=== PATIENT | male | born 1995 | race Caucasian/White ===

== ENCOUNTER 2021-05-02 06:55 | Emergency (ER) | payer MEDICAID ==
[~2021-05-02] VITALS: Ht 180.3 cm; Wt 77.3 kg
[2021-05-02] MEDS ORDERED: normal saline 1000ML IV soln IVB ONE (07:00)
[2021-05-02 08:00] LABS: BASOPHILS % (AUTO) 0.3 % (0-1); EOSINOPHILS # (AUTO) 0.1 X10'3 (0-0.9); HEMATOCRIT 43.4 % (42.0-52.0); HEMOGLOBIN 14.8 g/dl (14.0-17.9); LYMPHOCYTES # (AUTO) 1.4 X10'3 (1.1-4.8); MEAN CORPUSCULAR HEMOGLOBIN 30.4 PG (27.0-31.0); MEAN CORPUSCULAR HGB CONC 34.2 g/dL (33.0-36.5); MEAN CORPUSCULAR VOLUME 89.1 FL (78-98); MONOCYTES # (AUTO) 0.5 X10'3 (0-0.9)
[2021-05-02 08:03] LABS: EOSINOPHILS % (AUTO) 1.3 % (0-6); LYMPHOCYTES % (AUTO) 13.9 % (21-51); MEAN PLATELET VOLUME 9.9 FL (7.4-10.4); MONOCYTES % (AUTO) 5.1 % (2-12); NEUTROPHILS % (AUTO) 79.4 % (42-75); PLATELET COUNT 156 X10'3 (140-440); RED BLOOD COUNT 4.87 X10'6 (4.70-6.10); RED CELL DISTRIBUTION WIDTH 13.1 % (11.5-14.5); WHITE BLOOD COUNT 10.1 X10'3 (4.5-11.0)
[2021-05-02] MEDS ORDERED: azithromycin 250mg tablet PO ONE (08:30)
[2021-05-02 09:07] LABS: ALANINE AMINOTRANSFERASE 26 U/L (12-78); ALBUMIN 3.8 G/DL (3.4-5.0); ALBUMIN/GLOBULIN RATIO 1.2 (1.1-1.5); ALKALINE PHOSPHATASE 104 IU/L (46-116); ANION GAP 13 (8-16); ASPARTATE AMINO TRANSFERASE 24 U/L (10-37); BILIRUBIN,TOTAL 0.3 MG/DL (0.1-1.0); BLOOD UREA NITROGEN 14 MG/DL (7-18); BUN/CREATININE RATIO 12.5 (5.4-32.0); CALCIUM 8.9 MG/DL (8.5-10.1); CHLORIDE 106 MMOL/L (99-107); CREATININE 1.12 MG/DL (0.60-1.10); GLUCOSE 175 MG/DL (70-104); MAGNESIUM 1.9 MG/DL (1.5-2.4); POTASSIUM 3.7 MMOL/L (3.5-5.1); SODIUM 145 MMOL/L (135-145); TOTAL PROTEIN 7.1 G/DL (6.4-8.2); eGFR 79 ML/MIN
[2021-05-02] MEDS ORDERED: AZIT-83 PO (09:51)
[2021-05-02 10:31] VITALS: BP 132/72
== END 2021-05-02 10:32 | disposition home or self-care (01) ==
LOC: ER 06:56
DX: T40.411A Poisoning by fentanyl or fentanyl analogs, accidental (unintentional), initial encounter (principal); R51.9 Headache, unspecified; J69.0 Pneumonitis due to inhalation of food and vomit; F17.210 Nicotine dependence, cigarettes, uncomplicated; Z79.2 Long term (current) use of antibiotics; Y92.89 Other specified places as the place of occurrence of the external cause
CPT/HCPCS: 71045; 80053; 83735; 84484; 85025; 93005; 99285; J7030

== ENCOUNTER 2021-05-19 08:11 | Inpatient (IN) | payer MEDICAID ==
[~2021-05-19] VITALS: Ht 172.7 cm; Wt 88.0 kg
[~2021-05-19 08:11] MED LIST: AZIT-83 PO
[2021-05-19] MEDS ORDERED: normal saline 1000ML IV soln IVB ONE ×2 (08:25→09:25)
[2021-05-19 08:40] LABS: BASOPHILS # (AUTO) 0.1 X10'3 (0-0.2); BASOPHILS % (AUTO) 0.2 % (0-1); EOSINOPHILS # (AUTO) 0.4 X10'3 (0-0.9); HEMATOCRIT 53.4 % (42.0-52.0); HEMOGLOBIN 17.3 g/dl (14.0-17.9); LYMPHOCYTES # (AUTO) 4.2 X10'3 (1.1-4.8); LYMPHOCYTES % (AUTO) 10.8 % (21-51); MEAN CORPUSCULAR HEMOGLOBIN 29.4 PG (27.0-31.0); MEAN CORPUSCULAR HGB CONC 32.5 g/dL (33.0-36.5); MEAN CORPUSCULAR VOLUME 90.5 FL (78-98); MEAN PLATELET VOLUME 9.6 FL (7.4-10.4); MONOCYTES # (AUTO) 0.8 X10'3 (0-0.9); MONOCYTES % (AUTO) 2.1 % (2-12); NEUTROPHILS # (AUTO) 33.8 X10'3 (1.8-7.7); NEUTROPHILS % (AUTO) 85.9 % (42-75); PLATELET COUNT 390 X10'3 (140-440); RED BLOOD COUNT 5.89 X10'6 (4.70-6.10); RED CELL DISTRIBUTION WIDTH 12.8 % (11.5-14.5)
[2021-05-19 08:44] LABS: WHITE BLOOD COUNT 39.4 X10'3 (4.5-11.0)
--- NOTE | 2021-05-19 09:01 | NUR ---
notified dr field that pt hr is in 150's pt is using accessory muscle,breathing hard .as per md keep infusing the bolus fluid and will go from there.will go from there.pt is reciving 2l bolus warm fluid through fluid warmer.
[2021-05-19 09:06] LABS: TOTAL CELLS COUNTED 100
[2021-05-19 09:07] LABS: ANISOCYTOSIS FEW; PLATELET ESTIMATE NORMAL
[2021-05-19 09:08] LABS: LARGE PLATELETS FEW; TOXIC GRANULATION 1+; TOXIC VACUOLATION 2+
[2021-05-19 09:22] LABS: LACTIC SEPSIS 11.2 MMOL/L (0.4-2.0)
[2021-05-19] MEDS: naloxone 0.4 mg/ml inj IV PRN ×2 (09:22→10:19)
[2021-05-19] MEDS ORDERED: metroNIDAZOLE-Flagyl 500mg/NS 100 ML IV STA (10:43)
[2021-05-19] MEDS ORDERED: CefTRIAXone 2gm/D5W 50ml BAG 50 ML IV ONE (10:45)
[2021-05-19] MEDS ORDERED: vancomycin/NS 1 GM ADD-VANTAGE 250 ML IV ONE ×2 (10:45→15:45)
--- NOTE | 2021-05-19 11:04 | NUR ---
repaged the rt pt spo2 dropped down to 77 on 10 l ,placed 15l nonrebreather spo2 95 %.
[2021-05-19] MEDS ORDERED: NO HOME MEDS (11:10)
[2021-05-19 11:17] LABS: D-DIMER 4.82 MG/L FEU (0-0.50)
--- NOTE | 2021-05-19 12:54 | NUR ---
paged rt at this time for bal.
[2021-05-19] MEDS ORDERED: iohexol 350MG/ML 100ml bottle IV ONE (13:04)
[2021-05-19 13:41] LABS: ABG BASE EXCESS -7.1 mmol/L (-2.0-2.0); ABG HCO3 20.7 mmol/L (22.0-26.0); ABG OXYGEN SATURATION 92.9 % (94-97); ABG PCO2 (T) 50.1 mmHg (35.0-48.0); ABG PO2 (T) 73.8 mmHg (75.0-100.0); ALLEN'S TEST POSITIVE; FCOHb 0.1 % (0.0-3.9); FLOW 15 L/min; FMetHb 0.2 % (0.0-1.5); FO2Hb 92.6 % (94-97); TOTAL HEMOGLOBIN 14.9 G/dl (14.0-18.0)
[2021-05-19] MEDS ORDERED: acetaminophen 325mg tablet PO PRN ×2 (14:15)
[2021-05-19] MEDS ORDERED: HYDROcodone/acetaminophen 5mg/325mg tablet PO PRN (14:15)
[2021-05-19] MEDS ORDERED: ondansetron/PF 4mg/2ml inj IV PRN (14:15)
[2021-05-19] MEDS ORDERED: magnesium hydroxide 30ml (MOM) UD suspension PO PRN (14:15)
[2021-05-19] MEDS ORDERED: morphine 2 MG/ML inj. syringe IV PRN (14:15)
[2021-05-19] MEDS ORDERED: nicotine 14mg patch - 24hr TD ONE (14:55)
[2021-05-19 14:57] LABS: ALANINE AMINOTRANSFERASE 31 U/L (12-78); ALBUMIN 2.8 G/DL (3.4-5.0); ALKALINE PHOSPHATASE 97 IU/L (46-116); ANION GAP 9 (8-16); ASPARTATE AMINO TRANSFERASE 46 U/L (10-37); BILIRUBIN,TOTAL 0.3 MG/DL (0.1-1.0); BLOOD UREA NITROGEN 17 MG/DL (7-18); BUN/CREATININE RATIO 14.9 (5.4-32.0); CALCIUM 7.5 MG/DL (8.5-10.1); CHLORIDE 105 MMOL/L (99-107); CREATININE 1.14 MG/DL (0.60-1.10); GLUCOSE 100 MG/DL (70-104); POTASSIUM 3.7 MMOL/L (3.5-5.1); SODIUM 138 MMOL/L (135-145); TOTAL PROTEIN 5.5 G/DL (6.4-8.2); eGFR 78 ML/MIN
[2021-05-19 15:01] LABS: CKMB RELATIVE INDEX 4.5 RATIO (0-2.5); CREATINE KINASE 485 U/L (39-308); ETHANOL < 0.010 GM/DL (0.0-0.010)
[2021-05-19 15:09] LABS: URINE AMPHETAMINE SCREEN NEGATIVE (Neg); URINE BARBITUATE SCREEN NEGATIVE (Neg); URINE BENZODIAZEPINES SCREEN NEGATIVE (Neg); URINE CANNABINOID SCREEN POSITIVE (Neg); URINE COCAINE SCREEN NEGATIVE (Neg); URINE METHADONE SCREEN NEGATIVE (Neg); URINE OPIATE SCREEN NEGATIVE (Neg); URINE PHENCYCLIDINE SCREEN NEGATIVE (Neg)
--- NOTE | 2021-05-19 15:09 | NUR ---
dr cortes at bedside informed that pt trop is 1274 high senstivity.order for stat echo .verbal orders for nictonine patch 14 mg.will follow the orders.
[2021-05-19] MEDS: normal saline 1000ml 1,000 ML IV SCH ×2 (15:11→19:41)
--- NOTE | 2021-05-19 15:13 | NUR ---
jesus cortes pt is requiring more 02 ,15ln.c and 15l nonrebreather order to repeat the abg and do respitory treat and eval.
[2021-05-19 15:19] LABS: CLARITY,URINE SLIGHTLY CLOUDY (Clear); COLOR,URINE YELLOW (Yellow); GLUCOSE, URINE 500 mg/dl (Neg); KETONES,URINE NEGATIVE (Neg); LEUKOCYTE ESTERASE ,URINE NEGATIVE (Neg); NITRITES, URINE NEGATIVE (Neg); OCCULT BLOOD,URINE TRACE-INTACT (Neg); PROTEIN,URINE TRACE mg/dl (Neg); UROBILINOGEN,URINE 0.2 E.U/dL (0.2-1.0)
[2021-05-19 15:29] LABS: UA COLLECTION TYPE VOIDED
[2021-05-19 15:32] LABS: BACTERIA,URINE FEW /HPF (Neg); HYALINE CASTS 0-3 /LPF (NEGATIVE); RBC,URINE 0-2 /HPF (0-2); SQUAMOUS EPITHELIAL CELL,UR FEW /LPF (FEW); WBC,URINE 0-4 /HPF (0-4)
[2021-05-19 15:57] LABS: BASOPHILS % (AUTO) 0.2 % (0-1); EOSINOPHILS % (AUTO) 0 % (0-6); HEMOGLOBIN 15.2 g/dl (14.0-17.9); LYMPHOCYTES # (AUTO) 0.9 X10'3 (1.1-4.8); LYMPHOCYTES % (AUTO) 5.9 % (21-51); MEAN CORPUSCULAR HEMOGLOBIN 28.9 PG (27.0-31.0); MEAN CORPUSCULAR HGB CONC 33.8 g/dL (33.0-36.5); MEAN CORPUSCULAR VOLUME 85.6 FL (78-98); MEAN PLATELET VOLUME 9.4 FL (7.4-10.4); MONOCYTES % (AUTO) 6.4 % (2-12); NEUTROPHILS # (AUTO) 13.1 X10'3 (1.8-7.7); NEUTROPHILS % (AUTO) 87.5 % (42-75); PLATELET COUNT 238 X10'3 (140-440); RED BLOOD COUNT 5.26 X10'6 (4.70-6.10); RED CELL DISTRIBUTION WIDTH 12.5 % (11.5-14.5); WHITE BLOOD COUNT 14.9 X10'3 (4.5-11.0)
--- NOTE | 2021-05-19 16:05 | NUR ---
spoke to luciano pharmacist earlier as per her do not non admin the vancomycin dose as pt wbc is high and she want the loading dose of vancomycin.will admin the vancomycin.
[2021-05-19] MEDS: metroNIDAZOLE-Flagyl 500mg/NS 100 ML IV SCH (16:19)
--- NOTE | 2021-05-19 16:57 | NUR ---
maintenance service technician at bedside.
--- NOTE | 2021-05-19 17:11 | NUR ---
pharmacy technology instructor at bedside.
[2021-05-19 17:51] LABS: ABG BASE EXCESS -2.8 mmol/L (-2.0-2.0); ABG HCO3 23.9 mmol/L (22.0-26.0); ABG OXYGEN SATURATION 95.6 % (94-97); ABG PCO2 (T) 48.5 mmHg (35.0-48.0); ABG PO2 (T) 83.7 mmHg (75.0-100.0); ALLEN'S TEST POSITIVE; FCOHb 0.2 % (0.0-3.9); FMetHb 0.2 % (0.0-1.5); FO2Hb 95.2 % (94-97); TOTAL HEMOGLOBIN 15.5 G/dl (14.0-18.0)
[2021-05-19] MEDS: heparin, porcine 5000 units/ml vial SQ SCH (19:40)
[2021-05-19] MEDS: cefepime 1GM in D5W 50mL 50 ML IV SCH (19:40)
[2021-05-19] MEDS ORDERED: temazepam 15mg capsule PO PRN (21:00)
[2021-05-20] MEDS ORDERED: VANCOmycin 1250MG/NS 250ml Bag 250 ML IV SCH
[2021-05-20] MEDS: normal saline 1000ml 1,000 ML IV SCH ×2 (00:56→08:21)
[2021-05-20] MEDS: metroNIDAZOLE-Flagyl 500mg/NS 100 ML IV SCH ×2 (02:26→08:20)
[2021-05-20] MEDS: cefepime 1GM in D5W 50mL 50 ML IV SCH (08:00)
[2021-05-20] MEDS: heparin, porcine 5000 units/ml vial SQ SCH (08:20)
--- NOTE | 2021-05-20 08:35 | NUR ---
dr. infante at bedside. he states that pt may go home with po abx. dr. infante wants walking 02 sat on pt prior to d/c. if pt requires 02 for home, case management will get involved. dr. infante provided printed rx for augmentin for home.
[2021-05-20] MEDS ORDERED: AMOX-580 PO (08:40)
[2021-05-20 09:30] VITALS: BP 127/76
[2021-05-20 09:51] LABS: BASOPHILS % (AUTO) 0.3 % (0-1); EOSINOPHILS # (AUTO) 0.1 X10'3 (0-0.9); EOSINOPHILS % (AUTO) 0.4 % (0-6); HEMATOCRIT 42.2 % (42.0-52.0); HEMOGLOBIN 13.9 g/dl (14.0-17.9); LYMPHOCYTES # (AUTO) 1.6 X10'3 (1.1-4.8); LYMPHOCYTES % (AUTO) 12.6 % (21-51); MEAN CORPUSCULAR HEMOGLOBIN 29.6 PG (27.0-31.0); MEAN PLATELET VOLUME 10.3 FL (7.4-10.4); MONOCYTES # (AUTO) 0.9 X10'3 (0-0.9); MONOCYTES % (AUTO) 7.1 % (2-12); NEUTROPHILS # (AUTO) 10.1 X10'3 (1.8-7.7); NEUTROPHILS % (AUTO) 79.6 % (42-75); PLATELET COUNT 172 X10'3 (140-440); RED BLOOD COUNT 4.71 X10'6 (4.70-6.10); RED CELL DISTRIBUTION WIDTH 12.9 % (11.5-14.5); WHITE BLOOD COUNT 12.7 X10'3 (4.5-11.0)
[2021-05-20 09:55] LABS: MEAN CORPUSCULAR VOLUME 89.7 FL (78-98)
--- NOTE | 2021-05-20 10:00 | NUR ---
pt ambulated approx 150 feet around Ed, 02 remained 93%, Hr 130s, dr. infante present and aware. pt ok to be d/c'd at this time.
[2021-05-20 10:12] LABS: ALANINE AMINOTRANSFERASE 25 U/L (12-78); ALBUMIN 2.5 G/DL (3.4-5.0); ALBUMIN/GLOBULIN RATIO 0.8 (1.1-1.5); ALKALINE PHOSPHATASE 69 IU/L (46-116); ANION GAP 11 (8-16); ASPARTATE AMINO TRANSFERASE 46 U/L (10-37); BILIRUBIN,TOTAL 0.8 MG/DL (0.1-1.0); BLOOD UREA NITROGEN 9 MG/DL (7-18); BUN/CREATININE RATIO 10.2 (5.4-32.0); CALCIUM 7.9 MG/DL (8.5-10.1); CHLORIDE 109 MMOL/L (99-107); CREATININE 0.88 MG/DL (0.60-1.10); GLUCOSE 82 MG/DL (70-104); POTASSIUM 3.9 MMOL/L (3.5-5.1); SODIUM 143 MMOL/L (135-145); TOTAL CARBON DIOXIDE 22.8 MMOL/L (24-32); TOTAL PROTEIN 5.5 G/DL (6.4-8.2); eGFR > 90 ML/MIN
--- NOTE | 2021-05-20 10:55 | NUR ---
pt d/c'd from er, ambulated out of ed with steady gait. pt refused additional morning abx, states he still would like to leave the hosptial.
[2021-05-20] MEDS ORDERED: VANCOMYCIN LEVEL IV ONE (23:30)
== END 2021-05-20 10:55 | disposition home or self-care (01) | DRG 812 ==
LOC: ER 08:11 → ED HOLD 14:20
PROVIDERS: ADMIT Internal Medicine; ATTEND Internal Medicine
PROC: B32T1ZZ Computerized Tomography (CT Scan) of Left Pulmonary Artery using Low Osmolar Contrast (ICD-10-PCS; principal; 2021-05-19)
PROC: B3201ZZ Computerized Tomography (CT Scan) of Thoracic Aorta using Low Osmolar Contrast (ICD-10-PCS; 2021-05-19)
PROC: B32S1ZZ Computerized Tomography (CT Scan) of Right Pulmonary Artery using Low Osmolar Contrast (ICD-10-PCS; 2021-05-19)
DX: T40.411A Poisoning by fentanyl or fentanyl analogs, accidental (unintentional), initial encounter (principal); J96.01 Acute respiratory failure with hypoxia; J69.0 Pneumonitis due to inhalation of food and vomit; A41.9 Sepsis, unspecified organism; G92.8 Other toxic encephalopathy; N17.9 Acute kidney failure, unspecified; I24.8 Other forms of acute ischemic heart disease; F11.10 Opioid abuse, uncomplicated; Z20.822 Contact with and (suspected) exposure to COVID-19; F12.90 Cannabis use, unspecified, uncomplicated; R73.9 Hyperglycemia, unspecified; Z86.74 Personal history of sudden cardiac arrest
CPT/HCPCS: 36415; 36600; 70450; 71045; 71275; 80053; 80305; 80320; 81001; 82140; 82550; 82553; 82803; 83036; 83605; 84145; 84443; 84484; 85007; 85018; 85025; 85379; 87040; 87635; 93005; 93306; 94760; 96361; 96365; 96368; 96375; 99291; C9803; G0378; J0692; J0696; J1644; J2310; J3370; J3490; J7030; Q9967